=== PATIENT | female | born 1950 | race Caucasian/White ===

== ENCOUNTER → 2019-06-02 | Day surgery (SDC) | payer OTHER, MEDICARE ==
[2019-05-30 09:45] LABS: Absolute Lymphocytes (CBC) 1.3 K/uL (0.7-4.9); Basophils % 0.5 % (0-1.3); Hematocrit 43.2 % (36.0-45.0); Lymphocytes % 15.1 % (15.3-44.8); MPV 7.7 fL (7.6-11.3); RBC Red Blood Cell Count 4.84 M/uL (3.86-4.86)
[2019-05-30 10:05] LABS: Potassium 4.1 mmol/L (3.5-5.1)
--- NOTE | 2019-05-30 10:20 | RAD REPORT ---
EXAM DESCRIPTION: Candace Tran (2 Views)05/30/2019 9:54 am CLINICAL HISTORY: Preop for rectal surgery COMPARISON: 2014 FINDINGS: The lungs appear clear of acute infiltrate. The heart is normal size IMPRESSION: No acute abnormalities displayed
--- NOTE | 2019-05-30 11:58 | EKG ---
Test Date: 2019-05-30 Test Time: 09:28:15 Fourchette Sewer: JABARI MEASUREMENT RESULTS: Intervals: Rate: 59 WI: 166 QRSD: 74 QT: 418 QTc: 413 [place]: P: 47 WI: 166 QRS: 35 T: 46 INTERPRETIVE STATEMENTS: Sinus bradycardia Otherwise normal ECG Compared to ECG 12/01/2014 12:42:40 Sinus rhythm no longer present Electronically Signed On 05-30-19 11:58:02 CDT by Guy Peacock
[~2019-06-02] MED LIST: BUPIVACAINE 0.5% PF 10 ML VIAL ONE; CEFOXITIN/SWI 1gm 1 GM/10 ML SYR ONE; FENTANYL CITR 100 MCG/2 ML ONE; LIDOCAINE 2% MPF 5 ML VIAL ONE; MIDAZOLAM HCL 2 MG/2 ML INJ ONE; NA CIT/CITRIC AC 30 ML ORAL UDC ONE; ONDANSETRON 4 MG/2 ML VIAL ONE; PROPOFOL 200 MG/20 ML VIAL IV ONE; Ringers Lactate 1,000 ML IV ONE; TRAMADOL 37.5mg/APAP 325mg PER TAB ONE; TRAMADOL 37.5mg/APAP 325mg PER TAB PO ONE
[2019-06-02] MEDS: HYDROMORPHONE HCL 1 MG/ML INJ ONE ×2 (11:30→11:35)
--- NOTE | 2019-06-02 13:09 | EKG ---
Test Date: 2019-06-02 Test Time: 12:33:03 Area Field Manager: JYOTI MEASUREMENT RESULTS: Intervals: Rate: 69 FL: 158 QRSD: 72 QT: 414 QTc: 443 [place]: P: 10 FL: 158 QRS: 28 T: 30 INTERPRETIVE STATEMENTS: Normal sinus rhythm Low voltage QRS Borderline ECG Compared to ECG 05/30/2019 09:28:15 Low QRS voltage now present Sinus bradycardia no longer present Electronically Signed On 06-02-19 13:09:09 CDT by Júnior Fernandez
--- NOTE | 2019-06-02 13:19 | RAD REPORT ---
EXAM DESCRIPTION: RAD - Chest Single View - 06/02/2019 1:14 pm CLINICAL HISTORY: post procedure c/o chest discomfort Chest pain. COMPARISON: Chest Pa And Lat (2 Views) dated 05/30/2019; ABDOMEN 1 VIEW KUB dated 02/26/2015; CHEST P A AND LAT 2 VIEW dated 12/01/2014 FINDINGS: Portable technique limits examination quality. Mild linear atelectasis suspected in the right lung base. The lungs are otherwise clear. The heart is upper limit normal size. No displaced fractures.
[2019-06-02 14:24] VITALS: BP 123/58; TEMP 97.1; O2SAT 95
--- NOTE | 2019-06-02 23:05 | OP ---
Date of Procedure: 06/02/2019 Surgeon: Freddy Polanco MD Preoperative Diagnosis: Posterior midline perianal mass and skin tags and hemorrhoids. Postoperative Diagnosis: Posterior midline perianal mass and skin tags and hemorrhoids. Procedure: Exam under anesthesia, rigid proctoscopy, excision of posterior perianal mass and a skin tag and hemorrhoids x3. Estimated Blood Loss: Minimal. Specimens: Posterior perianal mass which on frozen section was squamous cell carcinoma likely and th en a skin tag on the right buttock as well as the perianal region. Findings: As above. Anesthesia: General. Complications: None. Disposition: Patient tolerated the procedure in stable condition, taken to Recovery in good general condition. Description Of Procedure: Patient was brought to the OR and placed in supine position. General anes thesia begun. Patient was placed in lithotomy position, prepped and draped in the usual sterile fash ion. Exam under anesthesia revealed a skin tag on the right buttocks, posterior midline hemorrhoidal tissue with skin tag and then on the perianal skin there was an indurated mass approximately 4 x 2 c m in the anus. On proctoscope there was an ulcerated mass present and it appeared to be extending at tached to the perianal mass. Marcaine 0.5% was infiltrated locally and then a Harmonic Scalpel used to excise the skin tag and sent to Pathology. The perianal mass was excised with an ellipse of skin incision down through the subcutaneous tissue. Not all of it was excised as it was indurated and ext ending in towards the rectum, enough for diagnosis was done. Frozen section was obtained which confi rmed the patient did likely have squamous cell carcinoma and then wound irrigated, bleeding controlle d with cautery, packing placed, and then a sterile dressing was applied. Patient was awakened and ta jeffrey to Recovery in good general condition. Discharge Note: Patient will go to Day Surgery, then home when stable. Disposition; home. Condition: Stable. Discharge Instructions: Resume home medications and diet. Activity as tolerated. No heavy lifting. Remove outer dressing in a.m., sitz baths daily, Procto-HC 2.5% to anus b.i.d. and p.r.n. Colace 1 00 mg p.o. b.i.d., Ultracet 1 tablet p.o. q.4 p.r.n. pain. Follow up in my office on . MARIYA/KAMALJIT Voice ID: [id number] Report ID: [id number]
== END | disposition home or self-care (01) ==
LOC: OR 08:56
PROVIDERS: ATTEND Surgery
PROC: 0HBAXZZ Excision of Inguinal Skin, External Approach (ICD-10-PCS; 2019-06-02)
PROC: 0DBQXZZ Excision of Anus, External Approach (ICD-10-PCS; 2019-06-02)
PROC: 0DJD8ZZ Inspection of Lower Intestinal Tract, Via Natural or Artificial Opening Endoscopic (ICD-10-PCS; principal; 2019-06-02 10:00)
DX: C44.520 Squamous cell carcinoma of anal skin (principal); L91.8 Other hypertrophic disorders of the skin; K64.9 Unspecified hemorrhoids; Z88.0 Allergy status to penicillin; Z88.6 Allergy status to analgesic agent
CPT/HCPCS: 45300; 46922; 93005 ×2; 85025; 80048; 36415; 88331; 88304; 88305; 71045; 71046; 46230; J2704; J2250; J3010; J1170; J7120 ×2; J2405; 88333

== ENCOUNTER 2019-12-25 15:10 | Emergency (ER) | payer OTHER, MEDICARE ==
--- OUTSIDE RECORDS SUMMARY | 2019-12-25 15:11 | XMS REPORT ---
:1950 Author Organization [facility] t Address [address] [place] [address] Care Team Providers Name Role Phone Unavailable Unavailable Unavailable Problems Condition Condition Condition Status Onset Resolution Last Treating Co mments Source Name Details Category Date Date Treatment Clinician Date Primary Primary Diagnosis [facility] Perlita kes - itis of [facility] left knee left knee l [facility] Acquired Acquired Problem [facility] hypothyroi hypothyroi Perlita kes - dism dism Memoria l [facility] Clinics Essential Essential Problem Active [facility] hypertensi hypertensi Perlita kes - on on [facility] l [facility] Pain, Pain, Diagnosis Active [facility] joint, joint, [facility] - knee, left knee, left Me moria l [facility] Allergies, Adverse Reactions, Alerts Allergy Allergy Status Severity Reaction(s) Onset Inactive Treating Comm ents Source Name Type Date Date Clinician codeine Adverse Active Info Not [facility] Reaction Available [facility] Peniclli Adverse Active Info Not [facility] Reaction Available [facility] Medications Ordered Filled Start Stop Current Ordering Indication Dosage Frequency Signature Comments Components Source Medication Medication Date Date Medication? Clinician (SIG) Name Name Metoprolol Metoprolol Yes Gabriel not [facility] Succinate Succinate [place] defined Perlita kes - ER ER [facility] l [facility] Spironolact Spironolact Yes Gabriel not [facility] one one [place] defined [facility] Levothyroxi Levothyroxi Yes Gabriel not [facility] ne Sodium ne Sodium [place] defined Perlita kes - [facility] l [facility] Hydrochloro Hydrochloro Yes Gabriel not [facility] thiazide thiazide [place] defined [facility] - [facility] Omeprazole Omeprazole Yes Gabriel TK [address] [facility] [place] [facility] Proctozone- Proctozone- Yes Gabriel USE [facility] HC HC [place] RECTALLY [facility] DIRECTED l DAILY [facility] ent Clinics Hydrocodone Hydrocodone Yes Gabriel (Schedule [facility] -Acetaminop -Acetaminop [place] II Drug) [facility] - hen hen TK 1 T PO Memoria Q 6 H PRN [facility] ent Clinics Procedures This patient has no known procedures. Encounters Start End Encounter Admission Attending Care Care Encounter Source Date/Time Date/Time Type Type Clinicians Facility Department ID 2019-11-10 2019-11-10 Outpatient Marisol Damont [id number] [facility] 15[facility]00 15[facility]00[facility]00 t [facility] 2019-11-03 2019-11-03 Outpatient Marisol Damont [id number] [facility] 14:00:00 14:00:00 t [facility] 2019-10-23 2019-10-23 [place]patient [facility] [place] [id number] [facility] 14[facility]30:00 14:30:00 t [facility] 2019-04-03 2019-04-03 Outpatient Marisol Damont [id number] [facility] 15:00:00 15:00:00 t [facility] 2019-03-27 2019-03-27 [place]patient [facility] [place] [id number] [facility] 15:00:00 15:00:00 t [facility] 2019-03-20 2019-03-20 [place]patient [place] [place] [id number] [facility] 14:00:00 14:00:00 t [facility] 2019-03-13 2019-03-13 [place]patient [place] [id number] [facility] 11:01:00 11:01:00 t [facility] 2019-03-13 2019-03-13 [facility] [id number] [facility] 10:50:00 10:50:00 t [facility] 2018-11-14 2018-11-14 [facility] [id number] [facility] 17:15:00 17:15:00 t Urgent Urgent Care [facility] 2018-10-01 2018-10-01 [place] [id number] [facility] 16:58:00 16:58:00 t [facility] 2018-09-12 2018-09-12 [facility] [id number] [facility] 21:03:00 21:03:00 t [facility] 2018-09-12 2018-09-12 [facility] [id number] [facility] 11:27:00 11:27:00 t [facility] 2018-09-12 2018-09-12 [facility] [id number] 10:30:00 10:30:00 t [facility] 2018-03-28 2018-03-28 [facility] [id number] [address] 10:00:00 10:00:00 t Bone [facility] Results This patient has no known results.
--- OUTSIDE RECORDS SUMMARY | 2019-12-25 15:11 | XMS REPORT ---
:1950 Author Organization [employer] Care Team Providers Name Role Gabriel Luna Provider Role Unavailable Allergies, Adverse Reactions, Alerts Substance Reaction Event Type codeine Info Not Available Drug Allergy Penicllin Info Not Available Drug Allergy Problems Problem Type Condition Code Onset Dates Condition Statu s Problem Acquired hypothyroidism E03.9 Acti ve Problem Primary osteoarthritis of left knee M17.12 Active Problem Essential hypertension I10 Activ e Assessment Primary osteoarthritis of left knee M17.12 Active Assessment Pain, joint, knee, left M25.562 Acti ve Medications Medication Code Code Instructions Start End Status Dosage System Date Date Levothyroxine Sodium [facility] 00747596532 50 MCG Oral Act harinder not defined Omeprazole [facility] 33071961417 20 MG Oral Active TK 1 C PO D Proctozone-HC [facility] 69512234165 2.5 % Rectal Active U SE RECTALLY DIRECTED DAILY Metoprolol Succinate ND 81265421737 100 MG Oral Act harinder not ER defined Spironolactone [facility] 16815490568 25 MG Oral Active no t defined Hydrochlorothiazide [facility] 16851134153 25 MG Oral Activ e not defined Benzonatate [facility] 28965916466 200 MG Orally Jie Active 1 capsule Three times a 2018 Hydrocodone-Acetamino [facility] 51413153282 10-325 MG Oral Active (Schedule phen II Drug) TK 1 T PO Q 6 H PRN Results No Known Results Summary Purpose [employer] Submission
--- OUTSIDE RECORDS SUMMARY | 2019-12-25 15:12 | XMS REPORT ---
[...] Status Dosage System Date Date Levothyroxine Sodium [facility] 96815175940 50 MCG Oral Act harinder not defined Spironolactone [facility] 99777503553 25 MG Oral Active no t defined Hydrocodone-Acetamino ND 83393540284 10-325 MG Oral Active (Schedule phen II Drug) TK 1 T PO Q 6 H PRN Proctozone-HC ND 36456812151 2.5 % Rectal Active U SE RECTALLY DIRECTED DAILY Omeprazole ND 84120583381 20 MG Oral Active TK 1 C PO D Hydrochlorothiazide ND 22425192356 25 MG Oral Activ e not defined Metoprolol Succinate ND 35381215639 100 MG Oral Act harinder not ER defined Results No Known Results Summary Purpose [employer] Submission
--- OUTSIDE RECORDS SUMMARY | 2019-12-25 15:12 | XMS REPORT ---
[...] Start End Status Dosage System Date Date Metoprolol Succinate ND 92623064710 100 MG Oral Act harinder not ER defined Levothyroxine Sodium ND 11171784680 50 MCG Oral Act harinder not defined Omeprazole ND 79914619064 20 MG Oral Active TK 1 C PO D Hydrocodone-Acetamino ND 02371015499 10-325 MG Oral Active (Schedule phen II Drug) TK 1 T PO Q 6 H PRN Proctozone-HC ND 09993522376 2.5 % Rectal Active U SE RECTALLY DIRECTED DAILY Spironolactone ND 57041036170 25 MG Oral Active no t defined Hydrochlorothiazide ND 26460530006 25 MG Oral Activ e not defined Results No Known Results Summary Purpose [employer]Works Submission
--- NOTE | 2019-12-25 16:22 | RAD REPORT ---
EXAM DESCRIPTION: Candace Single View12/25/2019 3:58 pm CLINICAL HISTORY: sob COMPARISON: 2019 FINDINGS: The lungs appear clear of acute infiltrate. The heart is normal size. Central venous line with its tip in the superior vena cava IMPRESSION: No acute abnormalities displayed
[2019-12-25 16:26] LABS: Absolute Lymphocytes (CBC) 0.7 K/uL (0.7-4.9); Basophils % 0.8 % (0-1.3); Hematocrit 41.6 % (36.0-45.0); Lymphocytes % 11.8 % (15.3-44.8); MPV 7.8 fL (7.6-11.3); RBC Red Blood Cell Count 4.68 M/uL (3.86-4.86)
[2019-12-25 16:45] LABS: Protime INR 2.19
[2019-12-25 16:52] LABS: ALT/SGPT 22 U/L (12-78); AST/SGOT 13 U/L (15-37); Albumin 3.5 g/dL (3.4-5.0); Alkaline Phosphatase 89 U/L (45-117); BUN Blood Urea Nitrogen 24 mg/dL (7-18); Bicarbonate 26 mmol/L (21-32); Bilirubin Direct 0.2 mg/dL (0-0.2); Bilirubin Total 0.7 mg/dL (0.2-1.0); Glucose Level 116 mg/dL (74-106); Magnesium 2.1 mg/dL (1.8-2.4); NT PRO-BNP 203 pg/mL (<125); Potassium 3.7 mmol/L (3.5-5.1); Protein, Total 7.7 g/dL (6.4-8.2); Sodium Level 140 mmol/L (136-145); Troponin (Emerg Dept Use Only) < 0.02 ng/mL (0.0-0.045)
--- NOTE | 2019-12-25 16:55 | ER ---
Nurse's Notes [facility] Name: Pina Gomez Age: 69 yrs Sex: Female : 1950 Arrival Date: 12/25/2019 Time: 15:10 Bed 18 Private MD: Gucci Chaney V Diagnosis: Atypical atrial flutter Presentation: 12/24 15:31 Chief complaint: Patient states: Palpitations started around 1400 today, had not taken jl7 her Metoprolol at that time so she took it, no improvement. Coronavirus screen: Proceed with normal triage. Patient denies a cough. Patient reports shortness of breath or difficulty breathing. Patient denies measured and/or subjective temperature greater than 100.4F prior to today's visit. Patient denies travel on a cruise ship or to a country the [facility] currently lists as an affected area. Patient denies contact with known and/or suspected case of COVID-19. Ebola Screen: No symptoms or risks identified at this time. Initial Sepsis Screen: Does the patient meet any 2 criteria? No. Patient's initial sepsis screen is negative. Does the patient have a suspected source of infection? No. Patient's initial sepsis screen is negative. Risk Assessment: Do you want to hurt yourself or someone else? Patient reports no desire to harm self or others. Onset of symptoms was December 25, 2019 at 14:00. Care prior to arrival: None. 15:31 Method Of Arrival: Wheelchair jl7 15:31 Acuity: ASHLEY 2 jl7 Triage Assessment: 15:37 General: Appears distressed, uncomfortable, Behavior is cooperative, anxious. Pain: jl7 Denies pain. Neuro: Level of Consciousness is awake, alert, obeys commands, Oriented to person, place, time, situation. Cardiovascular: Reports palpitations, shortness of breath, Denies chest pain, Patient's skin is warm and dry. Rhythm is regular. Respiratory: Airway is patent Respiratory effort is even, unlabored, Respiratory pattern is symmetrical, tachypnea. Derm: Skin is pink, warm \T\ dry. 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 - Social history:: Smoking status: Patient denies any tobacco usage or history of. Screenin:30 Abuse screen: Denies threats or abuse. Nutritional screening: No deficits noted. Tuberculosis screening: No symptoms or risk factors identified. Fall Risk None identified. Assessment: 15:50 General: Appears uncomfortable, Behavior is cooperative, anxious. Pain: Denies pain. Neuro: Level of Consciousness is awake, alert, Oriented to person, place, time, situation, Appropriate for age Dry Cleaning Counter Clerk are equal bilaterally Pupils are PERRLA. Cardiovascular: Heart tones S1 S2 present Capillary refill < 3 seconds Patient's skin is warm and dry. Pulses are palpable in right radial artery and left radial artery Rhythm is atrial flutter. Cardiovascular: Reports palpitations. Respiratory: Airway is patent Respiratory effort is even, unlabored, Respiratory pattern is regular, symmetrical, Breath sounds are clear bilaterally. GI: No signs and/or symptoms were reported involving the gastrointestinal system. : No signs and/or symptoms were reported regarding the genitourinary system. EENT: No signs and/or symptoms were reported regarding the EENT system. Derm: No signs and/or symptoms reported regarding the dermatologic system. Musculoskeletal: No signs and/or symptoms reported regarding the musculoskeletal system. 16:29 Cardiovascular: Heart tones S1 S2 present Rhythm is HR 83. Vital Signs: 15:30 BP 144 / 80; Pulse 125; Resp 22; Pulse Ox 97% ; ah 15:31 BP 149 / 98; Pulse 137; Resp 26; Pulse Ox 97% ; Weight 99.79 kg; Pain 0/10; jl7 16:05 Pulse 87; ah 16:30 BP 126 / 69; Pulse 75; Resp 16; Pulse Ox 96% ; ah 17:00 BP 126 / 69; Pulse 82; Resp 18; Pulse Ox 96% ; ah ED Course: 15:10 Patient arrived in ED. as 15:11 Gucci Chaney MD is Private Physician. as 15:33 Triage completed. jl7 15:37 Arm band placed on right wrist. EKG completed in triage. Results shown to MD. jl7 15:39 Danny Baumann PA is PHCP. jr8 15:39 Jin Newsome MD is Attending Physician. jr8 15:59 XRAY Chest (1 view) In Process Unspecified. EDMA 15:59 Lorrie Fernandez, RN is Primary Nurse. 16:00 Inserted saline lock: 20 gauge in right antecubital area, using aseptic technique. Patient maintains SpO2 saturation greater than 95% on room air. 16:39 Patient has correct armband on for positive identification. Bed in low position. Call light in reach. Side rails up X 1. ic designer custom on. Pulse ox on. NIBP on. 16:54 Guy Peacock MD is Referral Physician. jr8 17:30 No provider procedures requiring assistance completed. IV discontinued, intact, bleeding controlled, No redness/swelling at site. Pressure dressing applied. Administered Medications: 17:45 Not Given (provider discretion): Metoprolol 5 mg IVP every 5 minutes; Hold for SBP < 100 or HR < 60. x3 Outcome: 16:55 Discharge ordered by . jr8 17:30 Discharged to home 17:30 Condition: stable 17:30 Discharge instructions given to patient, Instructed on discharge instructions, follow up and referral plans. Demonstrated understanding of instructions, follow-up care. 17:48 Patient left the ED. Signatures: Dispatcher [employer] EDMA Mindy Baer as Danny Baumann PA PA jr8 Chase Gates RN RN [facility] Lorrie Fernandez RN RN Corrections: (The following items were deleted from the chart) 17:47 16:40 Discharged to home [facility] 17:47 16:40 Condition: stable [facility] 17:47 16:40 Discharge instructions given to patient, Instructed on discharge instructions, follow up and referral plans. Demonstrated understanding of instructions, follow-up care,
--- NOTE | 2019-12-25 16:55 | EDPHYS ---
Physician Documentation [facility] Name: Pina Gomez Age: 69 yrs Sex: Female : 1950 Arrival Date: 12/25/2019 Time: 15:10 Bed 18 Private MD: Gucci Chaney V ED Physician Jin Newsome HPI: 12/24 16:09 This 69 yrs old Female presents to ER via Wheelchair with complaints of jr8 Irregular Pulse. 16:09 The patient presents with a history of irregular heart beat, heart racing. Context: The jr8 symptoms occur at rest. Onset: The symptoms/episode began/occurred acutely, today. Duration: The patient or guardian reports a single episode, that is still ongoing. Modifying factors: The symptoms are aggravated by nothing. The symptoms are alleviated by nothing. Associated signs and symptoms: The patient has no apparent associated signs or symptoms. Severity of symptoms: At their worst the symptoms were mild in the emergency department the symptoms are unchanged. The patient has experienced a previous episode, approximately 10 years ago. The patient has been recently seen by a physician: with different complaint(s), lab tests were performed, CT scan was performed, Started on Xarelto for subsegmental and segmental small volume PE secondary to her previous cancer treatment . 16:09 Patient stated that she started to have racing in heart beat today. Took her metoprolol jr8 around 2 pm this afternoon but still not going away. Had this several years ago but was never given official diagnosis and was evaluated by cardiology and without acute findings . 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 - Social history:: Smoking status: Patient denies any tobacco usage or history of. ROS: 16:09 Eyes: Negative for injury, pain, redness, and discharge, ENT: Negative for injury, jr8 pain, and discharge, Neck: Negative for injury, pain, and swelling, Respiratory: Negative for shortness of breath, cough, wheezing, and pleuritic chest pain, Abdomen/GI: Negative for abdominal pain, nausea, vomiting, diarrhea, and constipation, Back: Negative for injury and pain, MS/Extremity: Negative for injury and deformity, Skin: Negative for injury, rash, and discoloration, Neuro: Negative for headache, weakness, numbness, tingling, and seizure. 16:09 Cardiovascular: Positive for palpitations. Exam: 16:09 Eyes: Pupils equal round and reactive to light, extra-ocular motions intact. Lids and jr8 lashes normal. Conjunctiva and sclera are non-icteric and not injected. Cornea within normal limits. Periorbital areas with no swelling, redness, or edema. ENT: Nares patent. No nasal discharge, no septal abnormalities noted. Tympanic membranes are normal and external auditory canals are clear. Oropharynx with no redness, swelling, or masses, exudates, or evidence of obstruction, uvula midline. Mucous membranes moist. Neck: Trachea midline, no thyromegaly or masses palpated, and no cervical lymphadenopathy. Supple, full range of motion without nuchal rigidity, or vertebral point tenderness. No Meningismus. Respiratory: Lungs have equal breath sounds bilaterally, clear to auscultation and percussion. No rales, rhonchi or wheezes noted. No increased work of breathing, no retractions or nasal flaring. Abdomen/GI: Soft, non-tender, with normal bowel sounds. No distension or tympany. No guarding or rebound. No evidence of tenderness throughout. Back: No spinal tenderness. No costovertebral tenderness. Full range of motion. Skin: Warm, dry with normal turgor. Normal color with no rashes, no lesions, and no evidence of cellulitis. MS/ Extremity: Pulses equal, no cyanosis. Neurovascular intact. Full, normal range of motion. Neuro: Awake and alert, GCS 15, oriented to person, place, time, and situation. Cranial nerves II-XII grossly intact. Motor strength 5/5 in all extremities. Sensory grossly intact. Cerebellar exam normal. Normal gait. 16:09 Cardiovascular: Rate: tachycardic, Rhythm: irregular, Pulses: Pulses are 2+ in right radial artery and left radial artery. Heart sounds: normal, normal S1and S2, no S3 or S4, no murmur, no rub, no gallop, Edema: is not appreciated, JVD: is not appreciated. 16:19 ECG was reviewed by the Attending Physician. jr8 16:19 ECG was reviewed by the Attending Physician. Vital Signs: 15:30 BP 144 / 80; Pulse 125; Resp 22; Pulse Ox 97% ; ah 15:31 BP 149 / 98; Pulse 137; Resp 26; Pulse Ox 97% ; Weight 99.79 kg; Pain 0/10; jl7 16:05 Pulse 87; ah 16:30 BP 126 / 69; Pulse 75; Resp 16; Pulse Ox 96% ; ah 17:00 BP 126 / 69; Pulse 82; Resp 18; Pulse Ox 96% ; ah MDM: 15:42 Patient medically screened. [facility] 16:53 Data reviewed: vital signs, nurses notes, lab test result(s), EKG, radiologic studies, 8 plain films. Data interpreted: Pulse oximetry: on room air is 96 %. Interpretation: normal. Counseling: I had a detailed discussion with the patient and/or guardian regarding: the historical points, exam findings, and any diagnostic results supporting the discharge/admit diagnosis, lab results, radiology results, the need for outpatient follow up, a instructional facilitator, to return to the emergency department if symptoms worsen or persist or if there are any questions or concerns that arise at home. Response to treatment: the patient's symptoms have resolved after treatment, the patient is not tachycardic. ED course: Told to f/u with cardiology. Most likely 2:1 atrial flutter that has resolved now. To continue metoprolol. If worse to come back. Patient good with plan . 12/24 15:41 Order name: Basic Metabolic Panel; Complete Time: 16:53 [facility] 12/24 15:41 Order name: CBC with Diff; Complete Time: 16:53 [facility] 12/24 15:41 Order name: LFT's; Complete Time: 16:53 [facility] 12/24 15:41 Order name: Magnesium; Complete Time: 16:53 [facility] 12/24 15:41 Order name: NT PRO-BNP; Complete Time: 16:53 [facility] 12/24 15:41 Order name: PT-INR; Complete Time: 16:53 12/24 15:41 Order name: Troponin (emerg Dept Use Only); Complete Time: 16:53 12/24 15:41 Order name: XRAY Chest (1 view); Complete Time: 16:12/24 15:41 Order name: EKG; Complete Time: 15:43 12/24 15:41 Order name: Cardiac monitoring; Complete Time: 16:02 12/24 15:41 Order name: EKG - Nurse/Tech; Complete Time: 16:12/24 15:41 Order name: IV Saline Lock; Complete Time: 16:12/24 15:41 Order name: Labs collected and sent; Complete Time: 16:12/24 15:41 Order name: O2 Per Protocol; Complete Time: 16:12/24 15:41 Order name: O2 Sat Monitoring; Complete Time: 16:12/24 16:06 Order name: EKG - Nurse/Tech; Complete Time: 16: EC:19 Rate is 135 beats/min. Rhythm is irregular, A flutter. QRS [place] is Normal. QRS interval jr8 is normal at 70 msec. QT interval is normal at 462 msec. No Q waves. T waves are Normal. No ST changes noted. Clinical impression: Atrial Flutter. Interpreted by me. Reviewed by me. 16:19 Rate is 84 beats/min. Rhythm is regular, Normal Sinus Rhythm. QRS [place] is Normal. OR jr8 interval is normal at 150 msec. QRS interval is normal at 68 msec. QT interval is normal at 418 msec. No Q waves. T waves are Normal. No ST changes noted. Clinical impression: Normal ECG. Interpreted by me. Reviewed by me. Administered Medications: 17:45 Not Given (provider discretion): Metoprolol 5 mg IVP every 5 minutes; Hold for SBP < ah 100 or HR < 60. x3 Disposition: 18:20 Co-signature as Attending Physician, Jin Newsome MD I agree with the assessment and kdr plan of care. Disposition: 12/25/19 16:55 Discharged to Home. Impression: Atypical atrial flutter. - Condition is Stable. - Discharge Instructions: Holter Monitoring, Atrial Flutter. - Medication Reconciliation Form, Thank You Letter, Antibiotic Education, Prescription Opioid Use form. - Follow up: Guy Peacock MD; When: 5 - 6 days; Reason: Recheck today's complaints, Continuance of care, Re-evaluation by your physician. - Problem is new. - Symptoms are resolved. Signatures: Dispatcher [employer] EDMS Jin Newsome MD MD [facility] Danny Baumann PA PA jr8 Chase Gates RN RN [facility] Lorrie Fernandez RN RN Corrections: (The following items were deleted from the chart) 16:55 16:55 12/25/2019 16:55 Discharged to Home. Impression: Atrial fibrillation and flutter. jr8 Condition is Stable. Forms are Medication Reconciliation Form, Thank You Letter, Antibiotic Education, Prescription Opioid Use. Follow up: Guy Peacock; When: 5 - 6 days; Reason: Recheck today's complaints, Continuance of care, Re-evaluation by your physician. Problem is new. Symptoms are resolved. jr8 17:48 16:55 12/25/2019 16:55 Discharged to Home. Impression: Atypical atrial flutter. Condition is Stable. Forms are Medication Reconciliation Form, Thank You Letter, Antibiotic Education, Prescription Opioid Use. Follow up: Guy Peacock; When: 5 - 6 days; Reason: Recheck today's complaints, Continuance of care, Re-evaluation by your physician. Problem is new. Symptoms are resolved. jr8
[2019-12-25 17:59] VITALS: BP 126/69; O2SAT 96
--- NOTE | 2019-12-26 06:25 | EKG ---
Test Date: 2019-12-25 Test Time: 15:29:58 Bottom Saw Operator: ROBERT MEASUREMENT RESULTS: Intervals: Rate: 135 VT: QRSD: 70 QT: 308 QTc: 462 [place]: P: VT: QRS: 43 T: 6 INTERPRETIVE STATEMENTS: Supraventricular tachycardia Nonspecific ST abnormality Abnormal ECG Compared to ECG 06/02/2019 12:33:03 ST (T wave) deviation now present Sinus rhythm no longer present Electronically Signed On 12-26-19 06:24:02 CDT by Guy Peacock
--- NOTE | 2019-12-26 15:38 | EKG ---
Test Date: 2019-12-25 Test Time: 16:16:52 Technical Recruiter: RONAK MEASUREMENT RESULTS: Intervals: Rate: 84 AK: 150 QRSD: 68 QT: 354 QTc: 418 [place]: P: 21 AK: 150 QRS: 51 T: 37 INTERPRETIVE STATEMENTS: Normal sinus rhythm Low voltage QRS Borderline ECG Compared to ECG 12/25/2019 15:29:58 Low QRS voltage now present Supraventricular tachycardia no longer present ST (T wave) deviation no longer present Electronically Signed On 12-26-19 15:35:50 CDT by Guy Peacock
== END 2019-12-25 17:48 | disposition home or self-care (01) ==
LOC: ER 15:10
DX: I48.4 Atypical atrial flutter (principal); Z88.0 Allergy status to penicillin; Z88.6 Allergy status to analgesic agent; E03.9 Hypothyroidism, unspecified; I10 Essential (primary) hypertension; Z85.040 Personal history of malignant carcinoid tumor of rectum
CPT/HCPCS: 36415; 71045; 80048; 80076; 83735; 83880; 84484; 85025; 85610; 93005; 99285

== ENCOUNTER 2024-01-27 10:23 | Emergency (ER) | payer OTHER, MEDICARE ==
--- OUTSIDE RECORDS SUMMARY | 2024-01-27 10:27 | XMS REPORT | Clinical Summary ---
Author Name Unknown Organization [facility] [place] Address [address] [place] [address] Care Team Providers Care Light Coil Winder Name Role Phone Freddy Polanco MD Unavailable Tiffanie Sanchez MD Primary Care Provider [phone] Leta Mayorga MD Unavailable Rena Waite MD Unavailable Gucci Chaney MD Unavailable [phone] Kun Mcmullen MD Unavailable Aaron Junior MD Unavailable Nish Mckeon MD Unavailable Susan Landeros MD Unavailable Allergies Active Allergy Reactions Criticality Noted Date Comments Adhesive Rash Medium 10/01/2020 EKG Lead stickers and IV tape Codeine Other (See Comments) 04/22/2020 Meperidine GI Intolerance,Nause a And Vomiting 04/29/2019 Penicillin Rash,Other (See Comments) Low 08/06/1972 Medications Medication Sig Dispensed Refills Start Date End Date Status metoprolol succinate (TOPROL XL) 100 mg 24 hr tablet Take 1 tablet (100 mg) by mouth daily. 04/18/2019 Active spironolactone (ALDACTONE) 25 mg tablet Take 1 tablet (25 mg) by mouth daily. Active hydroCHLOROthiazid e (HYDRODIURIL) 25 mg tablet Take 1 tablet (25 mg) by mouth daily. Takes in the morning 03/20/2019 Active levothyroxine (SYNTHROID, LEVOTHROID) 50 mcg tablet Take 1 tablet (50 mcg) by mouth daily. Active melatonin 3 mg tablet Take 1 tablet (3 mg) by mouth as needed. Active ascorbic acid, vitamin C, (VITAMIN C) 100 mg tablet Take 1 tablet (100 mg) by mouth daily. Active cholecalciferol, vitamin D3, 25 mcg (1,000 unit) tablet Take 1 tablet (1,000 Units) by mouth. Active zinc gluconate 50 mg tablet Take 1 tablet (50 mg) by mouth daily as needed. Active pantoprazole (PROTONIX) 40 mg EC tablet Take 1 tablet (40 mg) by mouth. 12/02/2021 Active metoprolol succinate (TOPROL XL) 50 mg 24 hr tablet TAKE 1 TABLET BY MOUTH DAILY. TO TAKE WITH 100MG FOR TOTAL 150MG DAILY 10/19/2021 Active TURMERIC-HERBAL COMPLEX NO.278 ORAL Take 1 tablet by mouth daily. Active aspirin 81 mg EC tablet Take 2 tablets (162 mg) by mouth daily. Active tirzepatide (Mounjaro) 5 mg/0.5 mL injection Inject under the skin once a week. Active gabapentin (NEURONTIN) 100 mg capsule Take 1 capsule (100 mg) by mouth 3 (three) times a day. Active diclofenac sodium (VOLTAREN) 75 mg EC tablet Take 1 tablet (75 mg) by mouth daily as needed. 01/01/2024 Discontinued Active Problems Problem Noted Date Diagnosed Date Endometrium thickened 03/07/2022 Hypomagnesemia 08/15/2019 Primary squamous cell carcinoma of anus 06/25/20 19 Cancer Staging:Clinical stage from 07/02/2019:Stage II(T2, N0, M0) - Signed by Rena Waite MD on 08/21/2019 Encounters Date Type Department Care Team Description 01/01/2024 10:00 AM CDT Telemedicine [facility] [place] - GI Medical Oncology [address] [facility] [facility] [address] [place] [address] Rena Waite MD Primary squamous cell carcinoma of anus 12/27/2023 12:05 PM CDT Ancillary Procedure Diagnostic Imaging in [facility] [id number] [place] [address] [address], [address] [place] [address] Denny Matute APRN Primary squamous cell carcinoma of anus 12/27/2023 Travel 04/05/2023 1:15 PM CDT Follow-Up [facility] in [place] - GI Medical Oncology [address] [facility] [address] [place] [address] Rena Waite MD Primary squamous cell carcinoma of anus 04/05/2023 Travel after 01/27/2023 Surgical History Surgery Date Site/Laterality Comments SECTION, CLASSIC 1970, 1985, 1988 CHOLECYSTECTOMY 08/06/2014 - 08/05/2015 EXCISION WIDE LOCAL ANAL/PERINEAL 05/06/2019 - 06/05/2019 anal lesion excision Medical History Medical History Date Comments Hypertension Hypothyroidism Osteoarthritis Anal cancer Family History Medical History Relation Name Comments No Known Problems Brother No Known Problems Daughter No Known Problems Father No Known Problems Mother No Known Problems Sister No Known Problems Son Relation Name Status Comments Brother Daughter Father Mother Sister Son Social History Tobacco Use Types Packs/Day Years Used Date Smoking Tobacco: Former Cigarettes 1 08/26/1982 - 06/26/1993 Smokeless Tobacco: Never Sex and Gender Information Value Date Recorded Sex Assigned at Female 06/23/2019 8:35 AM LOAD BLOCKER Gender Identity Female 06/23/2019 8:35 AM LOAD BLOCKER Sexual Orientation Straight 06/23/2019 8: 35 AM LOAD BLOCKER Job Start Date Occupation Industry Not on file Not on file Not on file Obstetrics History Para Term AB IAB SAB Ectopic Multiple Livin g Live Births 3 3 Date Outcome GA Total Labor Labor/2nd/3rd Weight Sex Type Anes PTL Kristen A1 A5 Name Clin Para Para Para Last Filed Vital Signs Vital Sign Reading Time Taken Comments Blood Pressure 146/72 04/05/2023 12:49 PM CDT Pulse 57 04/05/2023 12:49 PM CDT Temperature 36.8 C (98.3 F) 04/05/2023 1 2:49 PM CDT Respiratory Rate 18 04/05/2023 12:4 9 PM CDT Oxygen Saturation - - Inhaled Oxygen Concentration - - Weight 118.4 kg (261 lb 0.4 oz) 023 12:49 PM CDT Height - - Body Mass Index 44.11 06/26/2019 1:20 PM LOAD BLOCKER Plan of Treatment Upcoming Encounters Date Type Department Care Team (Late st Contact Info) Description 12/23/2024 9:15 AM CDT Lab Diagnostic Imaging in [facility] - Lab [address] [address], [address] [place] [address] Denny Matute, PROTOCOL MANAGER [address] [place] [address] [email or web address] 12/23/2024 9:45 AM CDT Ancillary Procedure Diagnostic Imaging in [facility] [address] [facility] [address], [address] [place] [address] Denny Matute, PROTOCOL MANAGER [address] [place] [address] [email or web address] 12/23/2024 1:00 PM CDT Follow-Up MD [facility] in [place] - GI Medical Oncology [address] [facility] [address] [place] [address] Rena Waite MD [address] [place] [address] [email or web address] Health Maintenance Due Date Last Done Comments COVID-19 Vaccine (2022-2 4 season) 2023 05/27/2021, 10/07/2020, 08/17/2020 Influenza Vaccine 04/06/2024 Procedures Procedure Name Priority Date/Time Associated Diagnosis Comments CT CHEST ABDOMEN PELVIS W CONTRAST Routine 12/27/2023 1:59 PM CDT Primary squamous cell carcinoma of anus .CBC Routine 12/27/2023 12:37 PM CDT Primary squamous cell carcinoma of anus CARCINOEMBRYONIC ANTIGEN Routine 024 12:37 PM CDT Primary squamous cell carcinoma of anus COMPREHENSIVE METABOLIC PANEL Routine 12/27/2023 12:37 PM CDT Primary squamous cell carcinoma of anus COMPLETE BLOOD COUNT W/ DIFFERENTIAL Routine 12/27/2023 12:37 PM CDT Primary squamous cell carcinoma of anus POC CREATININE Routine 12/27/2023 12:33 PM CDT FRACTIONATED BILIRUBIN Routine 12:10 PM CDT Primary squamous cell carcinoma of anus TOTAL PROTEIN Routine 04/05/2023 12:10 PM CDT Primary squamous cell carcinoma of anus ASPARTATE AMINOTRANSFERASE Routine 04/05/2023 12:10 PM CDT Primary squamous cell carcinoma of anus ALANINE AMINOTRANSFERASE Routine 023 12:10 PM CDT Primary squamous cell carcinoma of anus ALKALINE PHOSPHATASE Routine 04/05/2023 12:10 PM CDT Primary squamous cell carcinoma of anus ALBUMIN LEVEL Routine 04/05/2023 12:10 PM CDT Primary squamous cell carcinoma of anus CALCIUM LEVEL Routine 04/05/2023 12:10 PM CDT Primary squamous cell carcinoma of anus .GLOMERULAR FILTRATION RATE Routine 04/05/2023 12:10 PM CDT Primary squamous cell carcinoma of anus SERUM CREATININE Routine 04/05/2023 12:1 0 PM CDT Primary squamous cell carcinoma of anus ELECTROLYTE PANEL Routine 04/05/2023 12: 10 PM CDT Primary squamous cell carcinoma of anus BLOOD UREA NITROGEN Routine 04/05/2023 1 2:10 PM CDT Primary squamous cell carcinoma of anus GLUCOSE LEVEL Routine 04/05/2023 12:10 PM CDT Primary squamous cell carcinoma of anus DIFFERENTIAL Routine 04/05/2023 12:10 PM CDT Primary squamous cell carcinoma of anus .CBC Routine 04/05/2023 12:10 PM CDT Primary squamous cell carcinoma of anus MAGNESIUM LEVEL Routine 04/05/2023 12:10 PM CDT Primary squamous cell carcinoma of anus COMPREHENSIVE METABOLIC PANEL Routine 04/05/2023 12:10 PM CDT Primary squamous cell carcinoma of anus CARCINOEMBRYONIC ANTIGEN Routine 023 12:10 PM CDT Primary squamous cell carcinoma of anus COMPLETE BLOOD COUNT W/ DIFFERENTIAL Routine 04/05/2023 12:10 PM CDT Primary squamous cell carcinoma of anus after 01/27/2023 Results * CT Chest Abdomen Pelvis with Contrast (12/27/2023 1:59 PM CDT) Anatomical Region Laterality Modality Abdomen, Pelvis, Chest Computed Tomography 12/28/2023 8:14 PM CDT Impressions 12/28/2023 8:36 PM CDT Stable examination overall without definite metastasis in the chest, abdomen or pelvis. ACTIONABLE ITEMS/RECOMMENDATIONS*: None. *An Actionable Finding is a finding that may be unrelated to the original reason for imaging but potentially actionable, meaning further investigation may be necessary. The Actionable Findings Vigilance Unit (AFVU) assists medical providers with responding to additional radiologic findings that are unexpected and potentially actionable. Narrative 12/28/2023 8:36 PM CDT FULL RESULT: Examination: CT CHEST ABDOMEN PELVIS W CONTRAST on 12/27/2023 1:59 PM. Clinical History: Primary squamous cell carcinoma of anus. Indication: Restaging. Comparison: CT chest, abdomen and pelvis from 12/07/2022 and earlier examinations. Technique: CT CHEST ABDOMEN PELVIS W CONTRAST. Findings CHEST Lungs/pleura: Decreased branching opacity in the middle lobe from likely chronic post infectious or inflammatory process. No new suspicious pulmonary nodules. No pleural effusions or pleural thickening. Lymphatics: No lymphadenopathy within the chest. Thyroid: Stable small subcentimeter likely indeterminate thyroid gland nodules. Cardiovascular: No suspicious mediastinal mass or significant pericardial effusion. The heart size is within normal limit. Lines/catheters: None. ABDOMEN/PELVIS Hepatobiliary: No suspicious hepatic lesion. No biliary dilatation. Prior cholecystectomy. Spleen: No splenomegaly. Pancreas: No mass or ductal dilatation. Adrenal Glands: No mass. Kidneys, Ureters, Bladder: No hydronephrosis. Stable few subcentimeter right renal cortical cysts. No bladder mass. Gastrointestinal Tract: No discrete mass seen in the anorectum by CT imaging. Stable mild diverticular disease of the sigmoid and descending colon, but without imaging evidence of acute diverticulitis. Unchanged small hiatal hernia. No bowel obstruction. Pelvic Organs: No pelvic mass. Peritoneum/Retroperitoneum: No ascites. Lymph Nodes: No lymphadenopathy. Musculoskeletal: No suspicious skeletal lesion. Procedure Note Sajan Waite MD - 12/28/2023 FULL RESULT: Examination: CT CHEST ABDOMEN PELVIS W CONTRAST on 12/27/2023 1:59 PM. Clinical History: Primary squamous cell carcinoma of anus. Indication: Restaging. Comparison: CT chest, abdomen and pelvis from 12/07/2022 and earlierexaminations. Technique: CT CHEST ABDOMEN PELVIS W CONTRAST. Findings CHEST Lungs/pleura: Decreased branching opacity in the middle lobe from likelychronic post infectious or inflammatory process. No new suspiciouspulmonary nodules. No pleural effusions or pleural thickening. Lymphatics: No lymphadenopathy within the chest. Thyroid: Stable small subcentimeter likely indeterminate thyroid glandnodules. Cardiovascular: No suspicious mediastinal mass or significant pericardialeffusion. The heart size is within normal limit. Lines/catheters: None. ABDOMEN/PELVIS Hepatobiliary: No suspicious hepatic lesion. No biliary dilatation. Priorcholecystectomy. Spleen: No splenomegaly. Pancreas: No mass or ductal dilatation. Adrenal Glands: No mass. Kidneys, Ureters, Bladder: No hydronephrosis. Stable few subcentimeterright renal cortical cysts. No bladder mass. Gastrointestinal Tract: No discrete mass seen in the anorectum by CTimaging. Stable mild diverticular disease of the sigmoid and descendingcolon, but without imaging evidence of acute diverticulitis. Unchangedsmall hiatal hernia. No bowel obstruction. Pelvic Organs: No pelvic mass. Peritoneum/Retroperitoneum: No ascites. Lymph Nodes: No lymphadenopathy. Musculoskeletal: No suspicious skeletal lesion. IMPRESSION: Stable examination overall without definite metastasis in the chest,abdomen or pelvis. ACTIONABLE ITEMS/RECOMMENDATIONS*: None. *An Actionable Finding is a finding that may be unrelated to the originalreason for imaging but potentially actionable, meaning furtherinvestigation may be necessary. The Actionable Findings Vigilance Unit(AFVU) assists medical providers with responding to additional radiologicfindings that are unexpected and potentially actionable. Denny Matute APRN [facility] ORDERABLES * (ABNORMAL) .CBC (12/27/2023 12:37 PM CDT) Only the most recent of2 resultswithin the time period is included. White Blood Cell 8.8 4.1 - 10.5 K/uL 12/27/2023 3:26 PM CDT [facility] Red Blood Cell 4.57 3.99 - 5.46 M/uL 12/27/2023 3:26 PM CDT [facility] Hemoglobin 14.1 12.2 - 15.3 g/dL 12/27/2023 3:26 PM CDT [facility] Hematocrit 43.6 36.4 - 46.8 % 12/27/2023 3:26 PM CDT [facility] Mean Cell Volume 95 82 - 99 fL 12/27/2023 3:26 PM CDT [facility] Mean Cell Hemoglobin 30.9 26.6 - 33.2 pg 12/27/2023 3:26 PM T [facility] Mean Cell Hemoglobin Concentration 32.3 31.1 - 35.2 g/dL 12/27/2023 3:26 PM CDT [facility] RDW-SD 49.0 37.5 - 49.7 fL 12/27/2023 3:26 PM T [facility] Red Cell Diameter Width 13.6 11.6 - 15.5 % 12/27/2023 3:26 PM CDT [facility] Platelet 314 160 - 397 K/uL 12/27/2023 3:26 PM CDT [facility] Mean Platelet Volume 9.8 9.1 - 12.6 fL 12/27/2023 3:26 PM CDT [facility] Neutrophil % 74.1(H) 43.2 - 72.7 % 12/27/2023 3:26 PM CDT [facility] Lymphocyte % 15.2(L) 16.8 - 46.2 % 12/27/2023 3:26 PM CDT [facility] Monocyte % 8.6 5.1 - 12.5 % 12/27/2023 3:26 PM CDT [facility] Eosinophil % 0.5 0.4 - 6.3 % 12/27/2023 3:26 PM CDT [facility] Basophil % 0.3 0.2 - 1.4 % 12/27/2023 3:26 PM CDT [facility] IGRE % 1.3 0.1 - 1.5 % 12/27/2023 3:26 PM CDT [facility] Comment:The IGRE% includes M etamyelocytes, Myelocytes and Promyelocytes. Neutrophil Abs 6.51 1.95 - 7.25 K/uL 12/27/2023 3:26 PM CDT [facility] Lymphocyte Abs 1.34 1.01 - 3.24 K/uL 12/27/2023 3:26 PM CDT [facility] Monocyte Abs 0.76 0.24 - 0.85 K/uL 12/27/2023 3:26 PM CDT [facility] Eosinophil Abs 0.04 0.02 - 0.50 K/uL 12/27/2023 3:26 PM CDT [facility] Basophil Abs 0.03 0.02 - 0.09 K/uL 12/27/2023 3:26 PM CDT [facility] IG Abs 0.11 0.01 - 0.12 K/uL 12/27/2023 3:26 PM CDT [facility] Blood Venipuncture / Unknown 12/27/2023 12:37 PM CDT 12/27/2023 12:38 PM CDT Denny Matute APRN LAB BLOOD ORDERABLES [facility] [address], [id number] [place] [address] * (ABNORMAL) Comprehensive Metabolic Panel (12/27/2023 12:37 PM CDT) Bilirubin Total 0.6 0.0 - 1.2 mg/dL 12/27/2023 3:35 PM CDT [facility] Comment:Indocyanine Green (I CG) may cause falsely elevated bilirubin results. Total and direct bilirubin must not be measured from samples containing indocyanine green. False elevation of total bilirubin can be seen in patients with IgG concentrations above 28 g/L. eGFR 76 >=60 mL/min/1. 73 sq. m 12/27/2023 3:35 PM T [facility] Comment: The eGFRcr is calculated with the 2020 CKD-EPI creatinine equation using creatinine, patient's age, and sex for adults 18 years of age and older. Other factors, especially muscle mass, may affect accuracy and need to be considered. According to the Kidney Disease: Improving Global Outcomes (KDIGO) CKD Work Group 2012 Clinical Practice Guideline, chronic kidney disease (CKD) is defined as the abnormalities of kidney structure or function, present for more than 3 months, with implications for health. CKD should be classified by cause, GFR category, and albuminuria category. KDIGO guidelines provide the following GFR categories. Stage / Description / GFR mL/min/1.73 m2: G1* / Normal or high / >= 90 G2* / Mildly decreased / 60-89 G3a / Mildly to moderately decreased / 45-59 G3b / Moderately to severely decreased / 30-44 G4 / Severely decreased / 15-29 G5 / Kidney failure / <15 *In the absence of evidence of kidney damage, neither G1 nor G2 fulfill criteria for CKD. Tot Protein 7.2 6.4 - 8.3 gm/dL 12/27/2023 3:35 PM T [facility] Calcium Level Total 10.1 8.2 - 10.2 mg/dL 12/27/2023 3:35 PM [facility] Alkaline Phosphatase 84 35 - 104 U/L 12/27/2023 3:35 PM [facility] Albumin Level 4.4 3.5 - 5.2 gm/dL 12/27/2023 3:35 PM T [facility] AST 22 <=32 U/L 12/27/2023 3:35 PM [facility] ALT 26 <=33 U/L 12/27/2023 3:35 PM [facility] Sodium Level 137 136 - 145 mmol/L 12/27/2023 3:35 PM T [facility] Potassium Level 3.9 3.4 - 4.5 mmol/L 12/27/2023 3:35 PM [facility] Chloride 97(L) 98 - 107 mmol/L 12/27/2023 3:35 PM CDT [facility] CO2 28 22 - 29 mmol/L 12/27/2023 3:35 PM CDT [facility] Anion Gap 12 4 - 14 mmol/L 12/27/2023 3:35 PM CDT [facility] Creatinine 0.81 0.51 - 0.95 mg/dL 12/27/2023 3:35 PM CDT [facility] BUN 30(H) 6 - 23 mg/dL 12/27/2023 3:35 PM CDT [facility] Glucose Level 108(H) 70 - 99 mg/dL 12/27/2023 3:35 PM CDT [facility] Comment: Effective 03/01/16, the glucose reference intervals have been updated based on [place] [employer] guidelines (Standards of Medical Care in Diabetes 2016. Diabetes Care 2016; 39: S13-S22). Fasting blood glucose: Normal: 70-99 mg/dL Impaired fasting glucose (increased risk for diabetes or pre-diabetes): 100-125 mg/dL Diabetes mellitus: >/=126 mg/dL Random blood glucose: Normal: 70-199 mg/dL Note: Random glucose >100 mg/dL is associated with increased risk for diabetes. Blood Venipuncture / Unknown 12/27/2023 12:37 PM CDT 12/27/2023 12:38 PM CDT Denny Giovani FELICIANO LAB BLOOD ORDERABLES [facility] [address], Room #[id number] [place] [address] * CEA Ag (12/27/2023 12:37 PM CDT) Only the most recent of2 resultswithin the time period is included. Carcinoembryonic Antigen 1.9 <=3.8 ng/mL 12/27/2023 3:59 PM CDT [facility] Blood Venipuncture / Unknown 12/27/2023 12:37 PM CDT 12/27/2023 12:38 PM CDT Narrative [facility] - 12/27/2023 3:59 PM CDT Reference Ranges (age 20-69 years): Non-smoker: 0.0 - 3.8 ng/mL Smoker: 0.0 - 5.5 ng/mL This test is measured by electrochemiluminescence immunoassay on Deanna Mick immunoassay analyzers. Results obtained in different methods are not interchangeable. Denny Matute APRN LAB BLOOD ORDERABLES [facility] [address], Room #[id number] [place] [address] * POC Creatinine (12/27/2023 12:33 PM CDT) POC Creatinine 0.9 0.6 - 1.3 mg/dL 12/27/2023 12:37 PM CDT [facility] Comment:Medications, especia lly hydroxyurea or supplements, such as ascorbate, can interfere with test results causing a falsely and significantly higher result than expected. If a problem is suspected with a patient's result, a sample should be sent to the laboratory for confirmatory testing. POC eGFR 67 >=60 mL/min/1.7 3 sq. m 12/27/2023 12:37 PM CDT [facility] Comment: The eGFRcr is calculated with the 2020 CKD-EPI creatinine equation using creatinine, patient's age, and sex for adults 18 years of age and older. Other factors, especially muscle mass, may affect accuracy and need to be considered. According to the Kidney Disease: Improving Global Outcomes (KDIGO) CKD Work Group 2012 Clinical Practice Guideline, chronic kidney disease (CKD) is defined as the abnormalities of kidney structure or function, present for more than 3 months, with implications for health. CKD should be classified by cause, GFR category, and albuminuria category. KDIGO guidelines provide the following GFR categories. Stage / Description / GFR mL/min/1.73 m2: G1* / Normal or high / >= 90 G2* / Mildly decreased / 60-89 G3a / Mildly to moderately decreased / 45-59 G3b / Moderately to severely decreased / 30-44 G4 / Severely decreased / 15-29 G5 / Kidney failure / <15 *In the absence of evidence of kidney damage, neither G1 nor G2 fulfill criteria for CKD. Blood 12/27/2023 12:3 3 PM CDT 12/27/2023 12:37 PM CDT Narrative [facility] - 12/27/2023 12:37 PM CDT Method description: The i-STAT is an analyzer used for in vitro quantification of various analytes in whole blood. The device uses a single disposable cartridge which contains microfabricated sensors, a calibration solution, fluidics system, and a waste chamber. Each test cartridge contains chemically sensitive biosensors on a silicon chip that are configured to perform specific tests. The microfabricated sensors measure analyte concentration by an electrochemical assay. Denny Matute APRN POCT ORDERABLES - DE VICE [facility] Diagnostic Imaging [facility] [address], [address] [place] [address], * (ABNORMAL) .Serum Creatinine (04/05/2023 12:10 PM CDT) Creatinine 0.97(H) 0.51 - 0.95 mg/dL [facility] Comment:Testing performed at [facility], [address] [place] [id number] Blood 04/05/2023 12:1 0 PM CDT 04/05/2023 12:17 PM CDT Denny Matute APRN LAB BLOOD ORDERABLES [facility] [address], [address] [place] [address] * Glomerular Filtration Rate (04/05/2023 12:10 PM CDT) eGFR 62 >=60 mL/min/1.7 3 sq. m [facility] Comment: The eGFRcr is calculated with the 2020 CKD-EPI creatinine equation using creatinine, patient's age, and sex for adults 18 years of age and older. Other factors, especially muscle mass, may affect accuracy and need to be considered. According to the Kidney Disease: Improving Global Outcomes (KDIGO) CKD Work Group 2012 Clinical Practice Guideline, chronic kidney disease (CKD) is defined as the abnormalities of kidney structure or function, present for more than 3 months, with implications for health. CKD should be classified by cause, GFR category, and albuminuria category. KDIGO guidelines provide the following GFR categories Stage Description GFR mL/min/1.73 m2 G1* Normal or high >= 90 G2* Mildly decreased 60-89 G3a Mildly to moderately decreased 45-59 G3b Moderately to severely decreased 30-44 G4 Severely decreased 15-29 G5 Kidney failure <15 *In the absence of evidence of kidney damage, neither G1 nor G2 fulfill criteria for CKD. Testing performed at [facility], [address] [place] [address] Blood 04/05/2023 12:1 0 PM CDT 04/05/2023 12:17 PM CDT Warrenquirino Matute JODIE LAB BLOOD ORDERABLES [address], [address] [place] [address] * Fractionated Bilirubin (04/05/2023 12:10 PM CDT) Bili Total 0.6 <=1.2 mg/dL [facility] Comment: Indocyanine Green (ICG) may cause falsely elevated bilirubin results. Total and direct bilirubin must not be measured from samples containing indocyanine green. False elevation of total bilirubin can be seen in patients with IgG concentrations above 28 g/L. Testing performed at [facility], [address] [place] [id number] Bili Direct 0.2 <=0.3 mg/dL [facility] Comment: Indocyanine Green (ICG) may cause falsely elevated bilirubin results. Total and direct bilirubin must not be measured from samples containing indocyanine green. Testing performed at [facility], [address] [place] [id number] Bili Indirect 0.4 0.0 - 0.9 mg/dL CORINTH Comment:Testing performed at [facility], [address] [place] [id number] Blood 04/05/2023 12:1 0 PM CDT 04/05/2023 12:17 PM CDT Warrenquirino Giovani FELICIANO LAB BLOOD ORDERABLES [address], [address] [place] [address] * (ABNORMAL) Differential (04/05/2023 12:10 PM CDT) Total Cells 100 CORINTH Comment:All components of th e Differential performed at [facility], [address] [place], [place] [address] Neutrophil % 58.0 43.2 - 72.7 % CORINTH Comment: The Neutrophil count includes Bands. All components of the Differential performed at [facility], [address] [place] [address] Lymphocyte % 29.0 16.8 - 46.2 % CORINTH Comment:As part of Different ial, testing performed at [facility], [address] [place] [address] Monocyte % 11.0 5.1 - 12.5 % CORINTH Comment:As part of Different ial, testing performed at [facility], [address] [place] [address] Eosinophil % 1.0 0.4 - 6.3 % CORINTH Comment:As part of Different ial, testing performed at [facility], [address] [place] [address] Basophil % 1.0 0.2 - 1.4 % CORINTH Comment:As part of Different ial, testing performed at [facility], [address] [place], [place] [address] Neutrophil Abs 3.36 1.95 - 7.25 K/uL CORINTH Comment:As part of Different ial, testing performed at [facility], [address] [place] [address] Lymphocyte Abs 1.68 1.01 - 3.24 K/uL CORINTH Comment:As part of Different ial, testing performed at [facility], [address] [place], [place] [address] Monocyte Abs 0.64 0.24 - 0.85 K/uL CORINTH Comment:As part of Different ial, testing performed at [facility], [address] [place] [address] Eosinophil Abs 0.06 0.02 - 0.50 K/uL CORINTH Comment:As part of Different ial, testing performed at [facility], [address] [place] [address] Basophil Abs 0.06 0.02 - 0.09 K/uL CORINTH Comment:As part of Different ial, testing performed at [facility], [address] [place] [address] RBC Morph Present(A) Normal CORINTH Comment:As part of Different ial, testing performed at [facility], [address] [place] [address] PLT Morph Normal Normal CORINTH Comment:As part of Different ial, testing performed at [facility], [address] [place] [address] Anisocytosis Present(A) Not Present CORINTH Comment:As part of Different ial, testing performed at [facility], [address] [place] [address] Macrocyte Present(A) Not Present CORINTH Comment:As part of Different ial, testing performed at [facility], [address] [place] [address] Blood 04/05/2023 12:1 0 PM CDT 04/05/2023 12:17 PM CDT Denny Matute APRN LAB BLOOD ORDERABLES [facility] [address], [address] [place] [address] * (ABNORMAL) BUN (04/05/2023 12:10 PM CDT) BUN 27(H) 6 - 23 mg/dL CORINTH Comment:Testing performed at [facility], [address] [place] [address] Blood 04/05/2023 12:1 0 PM CDT 04/05/2023 12:17 PM CDT Denny Matute PROTOCOL MANAGER LAB BLOOD ORDERABLES [address], [address] [place] [address] * ALT (04/05/2023 12:10 PM CDT) ALT 18 <=33 U/L CORINTH Comment:Testing performed at [facility], [address] [place] [address] Blood 04/05/2023 12:1 0 PM CDT 04/05/2023 12:17 PM CDT Denny Matute PROTOCOL MANAGER LAB BLOOD ORDERABLES [address], [facility] [address] [place] [address] * Aspartate Aminotransferase (04/05/2023 12:10 PM CDT) AST 23 <=32 U/L CORINTH Comment:Testing performed at [facility], [address] [place] [address] Blood 04/05/2023 12:1 0 PM CDT 04/05/2023 12:17 PM CDT Denny Matute PROTOCOL MANAGER LAB BLOOD ORDERABLES [address], [facility] [address] [place] [address] * Total Protein (04/05/2023 12:10 PM CDT) Total Protein 7.3 6.4 - 8.3 g/dL CORINTH Comment:Testing performed at [facility], [address] [place], [place] [id number] Blood 04/05/2023 12:1 0 PM CDT 04/05/2023 12:17 PM CDT Denny Matute APRN LAB BLOOD ORDERABLES [address], [facility] [address] [place] [address] * Alkaline Phosphatase (04/05/2023 12:10 PM CDT) Alk Phos 95 35 - 104 U/L CORINTH Comment:Testing performed at [facility], [address] [place] [address] Blood 04/05/2023 12:1 0 PM CDT 04/05/2023 12:17 PM CDT Denny Matute APRN LAB BLOOD ORDERABLES Performing Organization Address City/[facility]/ZIP Co de Phone Number [address], [address] [address] * Magnesium Level (04/05/2023 12:10 PM CDT) Magnesium 2.1 1.6 - 2.6 mg/dL CORINTH Comment:Testing performed at [facility], [address] [place] [address] Blood 04/05/2023 12:1 0 PM CDT 04/05/2023 12:17 PM CDT Denny Matute APRN LAB BLOOD ORDERABLES [address], [place] [address] * (ABNORMAL) Glucose Level (04/05/2023 12:10 PM CDT) Glucose Level 118(H) 70 - 99 mg/dL CORINTH Comment: Effective 03/01/16, the glucose reference intervals have been updated based on [place] [employer] guidelines (Standards of Medical Care in Diabetes 2016. Diabetes Care 2016; 39: S13-S22). Fasting blood glucose: Normal: 70-99 mg/dL Impaired fasting glucose (increased risk for diabetes or pre-diabetes): 100- 125 mg/dL Diabetes mellitus: >/=126 mg/dL Random blood glucose: Normal: 70-199 mg/dL Note: Random glucose >100 mg/dL is associated with increased risk for diabetes Testing performed at [facility], [address] [place] [address] Blood 04/05/2023 12:1 0 PM CDT 04/05/2023 12:17 PM CDT Denny Matute APRN LAB BLOOD ORDERABLES [address], [facility] [address] [place] [address] * Calcium Level (04/05/2023 12:10 PM CDT) Calcium Lvl 10.1 8.4 - 10.2 mg/dL CORINTH Comment:Testing performed at [facility], [address] [place] [address] Blood 04/05/2023 12:1 0 PM CDT 04/05/2023 12:17 PM CDT Denny Matute APRN LAB BLOOD ORDERABLES [address], [address] [place] [address] * Albumin Level (04/05/2023 12:10 PM CDT) Albumin Lvl 4.1 3.5 - 5.2 gm/dL CORINTH Comment:Testing performed at [facility], [address] [place] [address] Blood 04/05/2023 12:1 0 PM CDT 04/05/2023 12:17 PM CDT Denny Matute PROTOCOL MANAGER LAB BLOOD ORDERABLES Performing Organization Address [facility]/State/ZIP Co de Phone Number [address], [facility] [address] [place] [address] * Electrolyte Panel (04/05/2023 12:10 PM CDT) Sodium Lvl 136 136 - 145 mEq/L CORINTH Comment:Testing performed at [facility], [address] [place], [place] [address] Potassium Lvl 4.6 3.5 - 5.1 mEq/L CORINTH Comment:Testing performed at [facility], [address] [place], [place] [address] Chloride 100 98 - 107 mEq/L CORINTH Comment:Testing performed at [facility], [address] [place], [place] [address] CO2 26 22 - 29 mEq/L CORINTH Comment:Testing performed at [facility], [address] [place], [place] [address] Anion Gap 10 4 - 14 mEq/L CORINTH Comment:Testing performed at [facility], [address] [place], [place] [address] Blood 04/05/2023 12:1 0 PM CDT 04/05/2023 12:17 PM CDT Denny Matute PROTOCOL MANAGER LAB BLOOD ORDERABLES Performing Organization Address [facility]/ZIP Co de Phone Number [address], [facility] [address] [place] [address] after 01/27/2023 Care Teams Light Coil Winder Relationship Specialty Start Date End Date Freddy Polanco MD [address] [place] [id number] [email or web address] PCP - External Referring General Surgery 06/26/19 Tiffanie Sanchez MD [address] [place] [address] [phone] [email or web address] PCP - General Radiation Oncology 06/26/19 Kun Mcmullen MD [address] [place] [phone] PCP - External Follow Up G Orthopedic Surgery 02/13/22 Aaron Junior MD [address] [place] [address] [place], [place] [id number] [email or web address] PCP - External Follow Up F Obstetrics/Gynecology 03/08/22 Leta Mayorga MD [address] [place] [address] [phone] [email or web address] Physician Radiation Oncology 07/15/19 Rena Waite MD [address] [place] [address] [phone] [email or web address] Physician Oncology 07/15/19 Gucci Chaney MD [address] [place] [address] [email or web address] Internal Medicine 06/11/20 Nish Mckeon MD [address] [place] [id number] [email or web address] Consulting Physician Colorectal Surgery 06/26/19 Susan Landeros MD [address] [place] [address] [email or web address] Consulting Physician Gynecological Oncology 03/08/22
[2024-01-27] MEDS ORDERED: HYDROCODONE/APAP 5/325 MG TAB ONE (11:22)
--- NOTE | 2024-01-27 11:31 | RAD REPORT ---
EXAM DESCRIPTION: US - Extremity Venous Uni Ltd - 01/27/2024 11:24 am CLINICAL HISTORY: Pain COMPARISON: None. TECHNIQUE: Real-time sonographic evaluation of the left lower extremity deep venous system was perfo rmed. FINDINGS: Normal compressibility, flow augmentation, phasic flow and spontaneous flow is identified in the left lower extremity deep venous system. No intraluminal filling defects seen. IMPRESSION: No DVT in the left lower extremity.
--- NOTE | 2024-01-27 12:16 | RAD REPORT ---
EXAM DESCRIPTION: RAD - Femur Left - 01/27/2024 12:05 pm CLINICAL HISTORY: PAIN COMPARISON: No comparisons FINDINGS/IMPRESSION: No acute fracture. Left knee arthroplasty. No hardware complications. Periphera l vascular calcifications.
--- NOTE | 2024-01-27 13:02 | EDPHYS ---
Physician Documentation [facility] Name: Pina Gomez Age: 73 yrs Sex: Female : 1950 Arrival Date: 01/27/2024 Time: 10: Bed 14 Private MD: ED Physician Phoenix Carrera HPI: 01/26 15:25 This 73 yrs old Female presents to ER via Wheelchair with complaints of Leg Pain. sb4 15:25 The patient presents with pain, that is acute. The complaints affect the lateral aspect sb4 of left thigh. Patient states that she has been in physical therapy P for chronic pain. States that she thinks she overdid it a few days ago because she is having a lot of pain on her left lateral thigh. She cannot think of any specific injury but states she is having pain that is not relieved by gabapentin or prednisone. She denies any swelling, redness, or discoloration to the area. 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 - Infectious Disease History:: Denies. - Social history:: Smoking status: Patient denies any tobacco usage or history of. ROS: 15:25 Constitutional: Negative for fever, chills, and weight loss, sb4 15:25 MS/extremity: Positive for injury or acute deformity, pain, of the lateral aspect of left thigh, 15:25 All other systems are negative, Exam: 15:25 Constitutional: This is a well developed, well nourished patient who is awake, alert, sb4 and in no acute distress. Head/Face: Normocephalic, atraumatic. Eyes: Extra-ocular motions intact. Periorbital areas with no swelling, redness, or edema. ENT: Mucous membranes moist. 15:25 Musculoskeletal/extremity: ROM: full active range of motion, full passive range of motion, Circulation is intact in all extremities. Weight bearing: able to fully bear weight, Tenderness along left quadriceps muscle. Vital Signs: 10:39 BP 183 / 66; Pulse 83; Resp 17; Temp 97; Pulse Ox 99% ; Weight 102.06 kg; Height 5 ft. ll1 4 in. ; Pain 10/10; 13:19 BP 178 / 68; Pulse 82; Resp 18; Temp 97.6; Pulse Ox 99% ; db 10:39 Body Mass Index 38.62 (102.06 kg, 162.56 cm) ll1 10:39 Pain Scale: Adult ll1 MDM: 10:28 Patient medically screened. sb4 15:25 Data reviewed: vital signs, nurses notes, radiologic studies, and as a result, I will sb4 discharge patient. Care significantly affected by the following chronic conditions: Hypertension. Counseling: I had a detailed discussion with the patient and/or guardian regarding the historical points, exam findings, and any diagnostic results supporting the discharge/admit diagnosis, the presence of at least one elevated blood pressure reading (>120/80) during this emergency department visit, radiology results, the need for outpatient follow up, a orthopedic surgeon, If symptoms persist, to return to the emergency department if symptoms worsen or persist or if there are any questions or concerns that arise at home. 01/26 11:06 Order name: Extremity Venous Uni Ltd US; Complete Time: 11:32 sb4 01/26 11:06 Order name: Femur Left XRAY; Complete Time: 12:17 sb4 Administered Medications: 11:22 Drug: HYDROcodone-acetaminophen PO 5 mg-325 mg 1 tabs PO once Route: PO; db 13:18 Follow up: Response: No adverse reaction db 13:18 Drug: Lidoderm Topical Patch 5 % (700 mg/patch) 1 patches Topical once; leave on for 12 db hours; cover most painful area; may cut into smaller pieces Route: Topical; Site: affected area; 13:18 Follow up: Response: No adverse reaction db Disposition: 19:12 Co-signature as Attending Physician, Phoenix Carrera MD I reviewed the patient's care rt provided by the Advanced Practice Provider and agree with the diagnosis and treatment plan. Disposition Summary: 01/27/24 13:01 Discharge Ordered Notes: Location: Home sb4 Problem: new sb4 Symptoms: have improved sb4 Condition: Stable sb4 Diagnosis - Strain of left quadriceps muscle, fascia and tendon sb4 Followup: sb4 - With: Private Physician - When: As needed - Reason: Recheck today's complaints, Re-evaluation by your physician Discharge Instructions: - Discharge Summary Sheet sb4 - Quadriceps Strain sb4 Forms: - Antibiotic Education sb4 - Prescription Opioid Use sb4 - Patient Portal Instructions sb4 - Leadership Thank You Letter sb4 Prescriptions: - lidocaine 4 % adhesive patch, medicated - apply 1 patch TRANSDERMAL route every 12 hours as needed for pain; 15 patch; sb4 Refills: 0, Product Selection Permitted - Diclofenac Sodium 75 mg Oral Tablet Sustained Release - take 1 tablet ORAL route 2 times per day; 30 tablet; Refills: 0, Product sb4 Selection Permitted - Tramadol 50 mg Oral Tablet - take 1 tablet ORAL route every 8 hours as needed; 12 tablet; Refills: 0, sb4 Product Selection Permitted Signatures: Dispatcher [employer] EDMS Dominique Canas RN RN Evelin Jovel RN RN ll1 Babs Bae RN RN Brisa Payne PA-C PA-C sb4 Phoenix Carrera MD MD rt
--- NOTE | 2024-01-27 13:02 | ER ---
Nurse's Notes [facility] Name: Pina Gomez Age: 73 yrs Sex: Female : 1950 Arrival Date: 01/27/2024 Time: 10:23 Bed 14 Private MD: Diagnosis: Strain of left quadriceps muscle, fascia and tendon Presentation: 01/26 10:39 Chief complaint: Patient states: Severe L leg pain since yesterday. Going to PT, maybe ll1 over did it on . Coronavirus screen: Client denies travel out of the [place] in the last 14 days. At this time, the client does not indicate any symptoms associated with coronavirus-19. Ebola Screen: Patient denies travel to an Ebola-affected area in the 21 days before illness onset. Initial Sepsis Screen: Does the patient meet any 2 criteria? No. Patient's initial sepsis screen is negative. Does the patient have a suspected source of infection? No. Patient's initial sepsis screen is negative. Risk Assessment: Do you want to hurt yourself or someone else? Patient reports no desire to harm self or others. Onset of symptoms was January 26, 2024. 10:39 Method Of Arrival: Wheelchair ll1 10:39 Acuity: ASHLEY 3 ll1 Triage Assessment: 10:39 General: Appears uncomfortable, Behavior is calm, cooperative, appropriate for age. ll1 Pain: Complains of pain in left leg Quality of pain is described as aching, throbbing. Musculoskeletal: Reports pain in left leg. 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 - Infectious Disease History:: Denies. - Social history:: Smoking status: Patient denies any tobacco usage or history of. Screenin:19 Abuse screen: Denies threats or abuse. Denies injuries from another. Nutritional db screening: No deficits noted. Tuberculosis screening: No symptoms or risk factors identified. 13:19 [facility] ED Fall Risk Assessment (Adult) History of falling in the last 3 months, db including since admission No falls in past 3 months (0 pts) Confusion or Disorientation No (0 pts) Intoxicated or Sedated No (0 pts) Impaired Gait No (0 pts) Mobility Assist Device Used No (0 pt) Altered Elimination No (0 pt) Score/Fall Risk Level 0 - 2 = Low Risk Oriented to surroundings, Maintained a safe environment. Assessment: 11:18 Reassessment: Patient appears in no apparent distress at this time. Patient and/or db family updated on plan of care and expected duration. Pain level reassessed. Patient is alert, oriented x 3, equal unlabored respirations, skin warm/dry/pink. ULTRASOUND IS AT PATIENT BEDSIDE. General: Appears in no apparent distress. comfortable, Behavior is calm, cooperative. Neuro: Level of Consciousness is awake, alert, obeys commands, Oriented to person, place, time, situation, Speech is normal. Respiratory: Airway is patent Respiratory effort is even, unlabored, Respiratory pattern is regular, symmetrical. 13:19 Reassessment: Patient appears in no apparent distress at this time. Patient and/or db family updated on plan of care and expected duration. Pain level reassessed. Patient is alert, oriented x 3, equal unlabored respirations, skin warm/dry/pink. Patient states symptoms have improved. 13:21 Pain: Complains of pain in left leg. db Vital Signs: 10:39 BP 183 / 66; Pulse 83; Resp 17; Temp 97; Pulse Ox 99% ; Weight 102.06 kg; Height 5 ft. ll1 4 in. ; Pain 10/10; 13:19 BP 178 / 68; Pulse 82; Resp 18; Temp 97.6; Pulse Ox 99% ; db 10:39 Body Mass Index 38.62 (102.06 kg, 162.56 cm) ll1 10:39 Pain Scale: Adult ll1 ED Course: 10:25 Patient arrived in ED. mg5 10:28 Brisa Carson PA-C is PHCP. sb4 10:28 Phoenix Carrera MD is Attending Physician. sb4 10:36 Arm band placed on. hb 10:42 Triage completed. ll1 11:04 Babs Bae, RN is Primary Nurse. db 11:26 Extremity Venous Uni Ltd US In Process Unspecified. EDMS 12:07 Femur Left XRAY In Process Unspecified. EDMS 13:19 Patient has correct armband on for positive identification. Bed in low position. Call db light in reach. Side rails up X 1. Provided Education on: DISCHARGE. 13:19 No provider procedures requiring assistance completed. Patient did not have IV access db during this emergency room visit. Administered Medications: 11:22 Drug: HYDROcodone-acetaminophen PO 5 mg-325 mg 1 tabs PO once Route: PO; db 13:18 Follow up: Response: No adverse reaction db 13:18 Drug: Lidoderm Topical Patch 5 % (700 mg/patch) 1 patches Topical once; leave on for 12 db hours; cover most painful area; may cut into smaller pieces Route: Topical; Site: affected area; 13:18 Follow up: Response: No adverse reaction db Medication: 13:19 VIS not applicable for this client. db Outcome: 13:01 Discharge ordered by . kale 13:19 Discharged to home via wheelchair, with family, db 13:19 Condition: stable 13:19 Discharge instructions given to patient, Instructed on discharge instructions, follow up and referral plans. Prescriptions given X 3, 13:21 Patient left the ED. db Signatures: Dispatcher [employer] EDVT Dominique Canas RN RN hb Lewis, Lynsay RN RN ll1 Babs Bae RN RN db Brisa Carson, PA-C PA-C [email or web address] Ani Fraser mg5 Corrections: (The following items were deleted from the chart) 13:21 11:18 Reassessment: Patient appears in no apparent distress at this time. Patient db and/or family updated on plan of care and expected duration. Pain level reassessed. Patient is alert, oriented x 3, equal unlabored respirations, skin warm/dry/pink. ULTRASOUND IS AT PATIENT BEDSIDE db
[2024-01-27] MEDS ORDERED: LIDOCAINE 4% PATCH ONE (13:15)
[2024-01-27 17:22] VITALS: BP 178/68; TEMP 97.6; O2SAT 99
== END 2024-01-27 13:21 | disposition home or self-care (01) ==
LOC: ER 10:23
DX: S76.112A Strain of left quadriceps muscle, fascia and tendon, initial encounter (principal)
CPT/HCPCS: 73552; 93971; J2001; 99283